=== PATIENT | male | born 1955 | race Caucasian/White ===

== ENCOUNTER 2022-05-10 10:31 | Inpatient (IN) | payer MEDICARE ==
--- NOTE | 2022-05-10 10:57 | ED Physician Documentation ---
PD HPI DYSPNEA - Stated complaint Stated Complaint: SOA,CHEST PAIN - Chief complaint Chief Complaint: Cardiac - History obtained from History obtained from: Patient - History of Present Illness Timing - onset: How many months ago (2) Timing - onset during: Light activity Timing - duration: Months (2) Timing - details: Gradual onset, Still present, Waxing and waning Improved by: Rest, Sitting up Worsened by: Exertion Associated symptoms: Palpitations, Bilateral edema. No: Fever, Cough, Hemoptysis, Wheezing, Chest pain / discomfort, Diaphoresis Similar symptoms before: Has not had sx before Recently seen: Emergency Dept - Additional information Additional information: 66-year-old Lazaro Mitchell has not had a primary care doctor for years and he has developed some swelling to his lower extremities and along with this he has had some exertional dyspnea. He has recently come into the emergency department and had some venous stasis ulcers which have become infected and he was placed on antibiotic. He has been wrapping his legs and the swelling has improved. The patient went into the clinic today to have his dressings changed and was found to have atrial fibrillation with rapid ventricular response and he has been sent to the emergency department for treatment. The patient notes to me that he has had this swelling in his lower extremities for about 2 months he has had some increased exertional dyspnea associated with the swelling in his legs and has had this happen to him about a year ago which he self treated and it resolved. He does not know of a prior history of atrial fibrillation. Review of Systems Constitutional: denies: Fever Ears: denies: Ear pain Nose: denies: Congestion Throat: denies: Sore throat Cardiac: reports: Palpitations, Pedal edema, Calf pain. denies: Chest pain / pressure Respiratory: reports: Dyspnea. denies: Cough, Wheezing GI: denies: Abdominal Pain, Nausea, Vomiting, Constipation, Diarrhea : denies: Dysuria, Frequency PD PAST MEDICAL HISTORY - Present Medications Home Medications: Ambulatory Orders Medication Instructions Recorded Confirmed Sulfamethox/Trimeth 800/160 1 tab PO BID 05/10/22 05/10/22 [Bactrim Ds] - Allergies Allergies/Adverse Reactions: Allergies Allergy/AdvReac Type Severity Reaction Status Date / Time Penicillins Allergy Hives Verified 05/10/22 10:50 PD ED PE NORMAL - Vitals Vital signs reviewed: Yes (tachy and hypertensive) - General General: Alert and oriented X 3, No acute distress, Well developed/nourished - HEENT HEENT: Atraumatic, PERRL, EOMI - Neck Neck: Supple, no meningeal sign, No bony TTP - Cardiac Cardiac: No murmur, Other (tachycardic irregularly irregular heart rate. ) - Respiratory Respiratory: Other (tachypneic at rest with reduced breath sounds in the right base. ) - Abdomen Abdomen: Soft, Non tender - Back Back: No CVA TTP, No spinal TTP - Derm Derm: Warm and dry, Other (post inflamatory hyperpigmentation to the LE bilat) - Extremities Extremities: No deformity, Other (There is trace edema bilaterally to the lower extremities and there is postinflammatory hyperpigmentation consistent with venous stasis disease present bilaterally he also has numerous ulcerations consistent with popped blistering that have become infected. There is erythema surrounding the ulcerat) - Neuro Neuro: Alert and oriented X 3, hemmer chainstitch 2-12 intact, No motor deficit, No sensory deficit, Normal speech Eye Opening: Spontaneous Motor: Obeys Commands Verbal: Oriented GCS Score: 15 - Psych Psych: Normal mood, Normal affect Results - Vitals Vitals: Vital Signs - 24 hr 05/10/22 05/10/22 05/10/22 10:45 11:10 11:30 Temperature 37.7 C Heart Rate 135 H 85 91 Respiratory 24 18 22 Rate Blood Pressure 160/90 H 147/85 H 111/89 H O2 Saturation 99 96 95 05/10/22 12:30 Temperature Heart Rate 95 Respiratory 20 Rate Blood Pressure 142/83 H O2 Saturation 100 Oxygen O2 Source Room air - EKG (time done) 1046 Rate: Rate (enter#) (144) Rhythm: Atrial fibrillation [place]: RAD Intervals: Prolonged QT (bordeline ) Ischemia: ST depression (minimal in lateral leads ) Compare to prior EKG: Old EKG unavailable Computer interpretation: Agree with computer - Labs Labs: Laboratory Tests 05/10/22 05/10/22 05/10/22 11:28 11:28 11:28 WBC 7.3 RBC 4.86 Hgb 14.4 Hct 44.2 MCV 90.9 MCH 29.6 MCHC 32.6 RDW 16.8 H Plt Count 189 MPV 10.5 Neut # (Auto) 5.3 Lymph # (Auto) 1.2 L [place] # (Auto) 0.7 Eos # (Auto) 0.1 Baso # (Auto) 0.1 Absolute Nucleated RBC 0.00 Nucleated RBC % 0.0 Sodium 134 L Potassium 4.2 Chloride 100 L Carbon Dioxide 26 Anion Gap 8.0 BUN 21 H Creatinine 0.9 Estimated GFR (MDRD) 84 L Glucose 92 Calcium 8.7 Total Bilirubin 1.0 AST 45 H ALT 29 Alkaline Phosphatase 126 H Troponin I High Sens 17.9 B-Natriuretic Peptide Total Protein 7.3 Albumin 2.5 L Globulin 4.8 H Albumin/Globulin Ratio 0.5 L Lipase 44 TSH Free T4 Free T3 pg/mL Urine Color Urine Clarity Urine pH Ur Specific [place] Urine Protein Urine Glucose (UA) Urine Ketones Urine Occult Blood Urine Nitrite Urine Bilirubin Urine Urobilinogen Ur Leukocyte Esterase Ur Microscopic Review Urine Culture Comments 05/10/22 05/10/22 05/10/22 11:28 11:28 11:28 WBC RBC Hgb Hct MCV MCH MCHC RDW Plt Count MPV Neut # (Auto) Lymph # (Auto) [place] # (Auto) Eos # (Auto) Baso # (Auto) Absolute Nucleated RBC Nucleated RBC % Sodium Potassium Chloride Carbon Dioxide Anion Gap BUN Creatinine Estimated GFR (MDRD) Glucose Calcium Total Bilirubin AST ALT Alkaline Phosphatase Troponin I High Sens B-Natriuretic Peptide 564 H Total Protein Albumin Globulin Albumin/Globulin Ratio Lipase TSH < 0.08 L Free T4 1.89 H Free T3 pg/mL 3.88 Urine Color Urine Clarity Urine pH Ur Specific [place] Urine Protein Urine Glucose (UA) Urine Ketones Urine Occult Blood Urine Nitrite Urine Bilirubin Urine Urobilinogen Ur Leukocyte Esterase Ur Microscopic Review Urine Culture Comments 05/10/22 12:02 WBC RBC Hgb Hct MCV MCH MCHC RDW Plt Count MPV Neut # (Auto) Lymph # (Auto) [place] # (Auto) Eos # (Auto) Baso # (Auto) Absolute Nucleated RBC Nucleated RBC % Sodium Potassium Chloride Carbon Dioxide Anion Gap BUN Creatinine Estimated GFR (MDRD) Glucose Calcium Total Bilirubin AST ALT Alkaline Phosphatase Troponin I High Sens B-Natriuretic Peptide Total Protein Albumin Globulin Albumin/Globulin Ratio Lipase TSH Free T4 Free T3 pg/mL Urine Color DARK YELLOW Urine Clarity CLEAR Urine pH 6.0 Ur Specific [place] >=1.030 H Urine Protein NEGATIVE Urine Glucose (UA) NEGATIVE Urine Ketones NEGATIVE Urine Occult Blood NEGATIVE Urine Nitrite NEGATIVE Urine Bilirubin NEGATIVE Urine Urobilinogen 1 (NORMAL) Ur Leukocyte Esterase NEGATIVE Ur Microscopic Review NOT INDICATED Urine Culture Comments NOT INDICATED - Rads (name of study) chest Radiology: Prelim report reviewed (Impression: Mild cardiomegaly with interstitial prominence and small pleural effusions. Please consider early CHF. There is elevation of the right hemidiaphragm.), EMP read indepedently, See rad report Procedures - IVC sono (time) 1050 Bedside IVC sono: IVC measures (cm) (1.87), IVC collapsed c insp (cm) (0.82), Euvolemia PD MEDICAL DECISION MAKING - ED course Complexity details: reviewed old records, reviewed results, re-evaluated patient, considered differential, d/w patient ED course: 66-year-old male who has seen us once here in the emergency department recently for swelling in his legs and infected ulcers has improvement in his ulcers and swelling and today he presents with atrial fibrillation and rapid ventricular response discovered on follow-up by his primary. The patient has evidence of likely longstanding atrial fibrillation that he has not tolerated well. There is evidence of congestive heart failure there is a pleural effusion on the right side. Patient does not appear to require diuresis today but he does appear tachycardic with a rate in the 130s to 140s and he is administered diltiazem. He requires a dose of 20 mg followed by a dose of 25 mg and his rate now is in the 70s. He remains in atrial fibrillation. He does not have a known history of prior atrial fibrillation. He arrives to us here today on as his only medication. I believe the patient will require more than 1 medication for stabilization of his atrial fibrillation with rapid ventricular response and I believe this would be best served for this patient in the hospital. Departure - Departure Disposition: ED Place in Observation Clinical Impression: Atrial fibrillation with RVR Venous stasis ulcers Qualifiers: Venous stasis ulcer site: calf Varicose vein presence: unspecified whether present Laterality: unspecified laterality Non-pressure ulcer stage: with fat layer exposed Qualified Code(s): I83.002 - Varicose veins of unspecified lower extremity with ulcer of calf CHF (congestive heart failure) Qualifiers: Heart failure type: unspecified Heart failure chronicity: chronic Qualified Code(s): I50.9 - Heart failure, unspecified Condition: Stable Discharge Date/Time: 05/10/22 14:20
[2022-05-10] MEDS ORDERED: diltiaZEM INJ 5 MG/ML VIAL IVP STA ×2 (10:58→12:38)
[2022-05-10 11:37] LABS: BASOPHILS # (AUTO) 0.1 10^3/uL (0.0-0.1); BASOPHILS % (AUTO) 0.7 %; EOSINOPHILS # (AUTO) 0.1 10^3/uL (0.0-0.7); HCT - HEMATOCRIT 44.2 % (42.0-52.0); HGB - HEMOGLOBIN 14.4 g/dL (14.0-18.0); LYMPHOCYTES # (AUTO) 1.2 10^3/uL (1.5-3.5); MEAN CORPUSCULAR HEMOGLOBIN 29.6 pg (27.0-31.0); MEAN CORPUSCULAR HGB CONC 32.6 g/dL (32.0-36.0); MEAN CORPUSCULAR VOLUME 90.9 fL (80.0-94.0); MEAN PLATELET VOLUME 10.5 fL (7.4-11.4); MONOCYTES # (AUTO) 0.7 10^3/uL (0.0-1.0); MONOCYTES % (AUTO) 9.5 %; NEUTROPHILS # (AUTO) 5.3 10^3/uL (1.5-6.6); NEUTROPHILS % (AUTO) 72.4 %; PLT - PLATELET COUNT 189 10^3/uL (130-450); RED BLOOD COUNT 4.86 10^6/uL (4.70-6.10); RED CELL DISTRIBUTION WIDTH 16.8 % (12.0-15.0); WHITE BLOOD COUNT 7.3 x10^3/uL (4.8-10.8)
[2022-05-10 11:49] LABS: ALBUMIN 2.5 g/dL (3.2-5.5); ALBUMIN/GLOBULIN RATIO 0.5 (1.0-2.2); CALCIUM 8.7 mg/dL (8.5-10.3); CREATININE 0.9 mg/dL (0.6-1.2); POTASSIUM 4.2 mmol/L (3.5-5.0); TOTAL PROTEIN 7.3 g/dL (6.7-8.2)
--- NOTE | 2022-05-10 12:00 | XRAY Report ---
PROCEDURE: Chest 1 View X-Ray INDICATIONS: dyspnea TECHNIQUE: One view of the chest was acquired. COMPARISON: None FINDINGS: Surgical changes and devices: None. Lungs and pleura: There is elevation of the right hemidiaphragm. Poorly defined interstitial prominen ce can be seen. There is mild blunting of the costophrenic angles. Mediastinum: Mediastinal contours appear normal. Heart size is mildly enlarged. Bones and chest wall: No suspicious bony lesions. Age-appropriate degenerative changes are seen. Overlying soft tissues appear unremarkable. IMPRESSION: Mild cardiomegaly with interstitial prominence and small pleural effusions. Please consider early CHF . There is elevation of the right hemidiaphragm. Reviewed by: Hari Baca MD on 05/10/2022 10:59 AM SASHA Approved by: Hari Baca MD on 05/10/2022 10:59 AM SASHA Station ID: [id number]
[2022-05-10 12:07] LABS: GLUCOSE, URINE (UA) NEGATIVE (NEGATIVE); KETONES,URINE (UA) NEGATIVE (NEGATIVE); LEUKOCYTE ESTERASE, URINE NEGATIVE (NEGATIVE); NITRITE,URINE NEGATIVE (NEGATIVE); OCCULT BLOOD,URINE NEGATIVE (NEGATIVE); PROTEIN,URINE NEGATIVE (NEGATIVE); UROBILINOGEN,URINE 1 (NORMAL) E.U./dL (NORMAL)
[2022-05-10 12:08] LABS: CLARITY,URINE CLEAR (CLEAR)
[2022-05-10 12:11] LABS: BILIRUBIN,URINE NEGATIVE (NEGATIVE); ICTOTEST,URINE NEGATIVE
[2022-05-10] MEDS ORDERED: ONDANSETRON ODT 4 MG TABLET TL PRN (13:19)
[2022-05-10] MEDS ORDERED: ONDANSETRON 4 MG/2 ML VIAL IVP PRN (13:19)
[2022-05-10] MEDS ORDERED: SODIUM CHLORIDE FLUSH 0.9% 10 ML SYRINGE IVP PRN (13:19)
[2022-05-10] MEDS ORDERED: ACETAMINOPHEN 325 MG TABLET PO PRN (13:19)
[2022-05-10] MEDS ORDERED: FUROSEMIDE 40 MG/4 ML VIAL IVP STA (13:22)
--- NOTE | 2022-05-10 13:24 | HISTORY & PHYSICAL EXAMINATION ---
Chief Complaint - Chief Complaint Chief Complaint: Heart racing History of Present Illness - Admitted From Admitted From:: Home - History Obtained From Records Reviewed: [facility] History obtained from: Patient, ER Physician, EMR - History of Present Illness HPI Comment/Other: This is a 66-year-old male with no significant past medical history who presents today from the walk-in clinic due to palpitations. He states he has felt his heart racing for the past few days and he went to walk-in clinic today to follow-up for his lower extremity wounds. There he was noted to have an elevated heart rate in the 130s and he was in atrial fibrillation so he was referred to the emergency department. The patient was seen 3 days ago in our emergency department for lower extremity wounds and was discharged on Bactrim. He states his wounds have been there for the last few months. He has had no fevers or chills. He has had occasional drainage from the wounds in both of his legs. He states his legs have become more edematous over the past week or so. He has now developed dyspnea over the past 2 to 3 days. He has had no cough or orthopnea. He is a little more dyspneic with activity. He has noticed some wheezing as well over the past 2 to 3 days. He is on an antihistamine and Tylenol at home. The only other medication is the Bactrim which was just prescribed 3 days ago. He denies any prior cardiac history including CHF, coronary artery disease, atrial fibrillation. In the emergency department, he was given diltiazem IV twice with improvement in his heart rate to the 80s. Chest x-ray suggest pulmonary edema and his BNP was elevated. Given the new onset atrial fibrillation along with CHF, medicine was consulted for admission. We discussed goals of care and he would like to be a full code. History - Past Medical History Cardiovascular: reports: Congestive heart failure, Atrial fibrillation - Family & Social History Living arrangement: At home Living Situation: With friend(s) Social History Notes: He lives at home with a friend. He smoked a few cigarettes a day for about 10 years but quit over 10 years ago. He drank alcohol briefly in the 90s. No recent alcohol use. Denies illicit drug use. Meds/Allgy - Home Medications Home Medications: Ambulatory Orders Medication Instructions Recorded Confirmed Sulfamethox/Trimeth 800/160 1 tab PO BID 05/10/22 05/10/22 [Bactrim Ds] - Allergies Allergies/Adverse Reactions: Allergies Allergy/AdvReac Type Severity Reaction Status Date / Time Penicillins Allergy Hives Verified 05/10/22 10:50 Review of Systems - Constitutional Constitutional: denies: Fever, Weakness - Ears, Nose & Throat Ears, Nose & Throat: denies: Postnasal drainage, Dentures - Cardiovascular Cariovascular: reports: Palpitations, Edema, Exertional dyspnea, Decr. exercise tolerance. denies: Chest pain, Lightheadedness - Respiratory Respiratory: reports: Wheezing, SOB at rest, SOB with exertion. denies: Cough, Orthopnea - Gastrointestinal Gastrointestinal: denies: Abdominal pain, Diarrhea, Nausea, Vomiting - Genitourinary Genitourinary: denies: Dysuria, Frequency, Urgency - Integumentary Integumentary: reports: Lesions, Pigment changes - Neurological Neurological: denies: General weakness - Hematologic/Lymphatic Hematologic/Lymphatic: denies: Anemia, Bleeding tendencies - All Other Systems All Other Systems: reports: Reviewed and negative Prior Level of Functionality: Independent with his ADLs. Exam - Vital Signs Reviewed Vital Signs: Yes Vital Signs: Vital Signs x48h Temp Pulse Resp BP Pulse Ox 05/10/22 12:30 95 20 142/83 H 100 05/10/22 11:30 91 22 111/89 H 95 05/10/22 11:10 85 18 147/85 H 96 05/10/22 10:45 37.7 C 135 H 24 160/90 H 99 - Physical Exam General Appearance: positive: No acute distress, Alert Eyes Bilateral: positive: Conjunctivae nml ENT: positive: Other (Poor dentition with multiple missing teeth.) Neck: positive: Nml inspection Respiratory: positive: No respiratory distress, Rales. negative: Wheezes Cardiovascular: positive: Irregularly irregular. negative: Tachycardia, Systolic murmur Abdomen: positive: Non-tender, No distention. negative: Tenderness Skin: positive: Warm, Dry, Other (Multiple ulcerations over the bilateral lower extremities with the largest being approximately 4 cm over the lateral aspect of the right lower extremity. There is sanguinous discharge.) Extremities: positive: Pedal edema (+2 edema in bilateral lower extremities.), Other (Chronic venous stasis changes over bilateral lower extremities.) Conclusion/Plan - Problem List (1) Atrial fibrillation with RVR Conclusion/Plan: He is found to have new onset atrial relation and now appears to be in mild heart failure as well. He is rate controlled after receiving diltiazem in the emergency department. We will start him on oral metoprolol for rate control. We will also start him on Eliquis for anticoagulation. Monitor on telemetry. Check TSH. Echocardiogram in the morning. (2) CHF (congestive heart failure) Conclusion/Plan: Suspect like he has underlying heart failure given his lower extremity edema, elevated BNP, pulmonary vascular congestion on chest x-ray. This may be due to tachyarrhythmia given he is in atrial fibrillation. He is not overtly symptomatic and is not hypoxic. We will give him a one-time dose of Lasix IV today and start him on oral diuretics in the morning. We will obtain echocardiogram in the morning. Low-sodium diet. Daily weights. Plan is to discharge home tomorrow on appropriate heart failure therapy. Qualifiers: Heart failure type: unspecified Heart failure chronicity: chronic Qualified Code(s): I50.9 - Heart failure, unspecified (3) Venous stasis ulcers Conclusion/Plan: He is on Bactrim which we will continue to complete 1 week of therapy as there w as concern of infection during his most recent ER visit. Qualifiers: Venous stasis ulcer site: calf Varicose vein presence: unspecified whether present Laterality: unspecified laterality Non-pressure ulcer stage: with fat layer exposed Qualified Code(s): I83.002 - Varicose veins of unspecified lower extremity with ulcer of calf; L97.202 - Non-pressure chronic ulcer of unspecified calf with fat layer exposed - Lab Results Lab results reviewed: Yes Fish Bones: 05/10/22 11:28 05/10/22 11:28 - Diagnostic Imaging Results Diagnostic Imaging Results: positive: Final report reviewed - EKG Results EKG Interpreted Independently: Yes EKG Findings: EKG revealed atrial fibrillation with RVR. No evidence of ischemia. Artifact is noted. Core Measures - Anticipated LOS I expect patient to be DC'd or transferred within 96 hours.: Yes - Issues Hospital Issues and Management Plan: 66-year-old male presents from walk-in clinic due to an elevated heart rate found to be in A. fib with RVR. Looks to be in mild congestive heart failure and we will place in observation for further management of the heart failure and A. fib. - DVT/VTE - Prophylaxis VTE/DVT Device ordered at admit?: No VTE/DVT Prophylaxis med ordered at admit?: No
[2022-05-10] MEDS ORDERED: METOPROLOL SUCCINATE 50 MG TABLET PO SCH ×2 (14:00→15:00)
[2022-05-10 14:47] LABS: B. PARAPERTUSSIS- RESP PCR PAN NOT DETECTED; B. PERTUSSIS- RESP PCR PANEL NOT DETECTED; C. PNEUMONIAE- RESP PCR PANEL NOT DETECTED; CORONAVIRUS 229E-RESP PCR NOT DETECTED; CORONAVIRUS HKU1-RESP PCR NOT DETECTED; CORONAVIRUS NL63-RESP PCR NOT DETECTED; CORONAVIRUS OC43-RESP PCR NOT DETECTED; HUMAN METAPNEUMOVIRUS NOT DETECTED; INFLUENZA A- RESP PCR PANEL NOT DETECTED; INFLUENZA B - RESP PCR PANEL NOT DETECTED; M. PNEUMONIAE- RESP PCR PANEL NOT DETECTED; PARAINFLUENZA VIRUS 1 NOT DETECTED; PARAINFLUENZA VIRUS 2 NOT DETECTED; PARAINFLUENZA VIRUS 3 NOT DETECTED; PARAINFLUENZA VIRUS 4 NOT DETECTED; RHINOVIRUS/ENTEROVIRUS NOT DETECTED; RSV- RESP PCR PANEL NOT DETECTED; SARS-CoV-2 -RESP PCR PANEL NOT DETECTED
[2022-05-10 15:23] LABS: FREE T3 3.88 pg/mL (2.5-3.9)
[2022-05-10 15:24] LABS: FREE T4 (FREE THYROXINE) 1.89 ng/dL (0.58-1.64)
--- NOTE | 2022-05-10 15:34 | PHARMACY PROGRESS NOTE ---
- Best Possible Medication History Admit Date and Time: 05/10/22 1315 Processed by: Pharmacy Medication History completed: Yes Secondary Source(s): Insurance records As the person ultimately responsible for medication therapy, providers are able to order a medication from an existing home medication list in [facility] via the "Reconcile Routine" prior to Confirmation of that medication by support architect. Such practice is discouraged except when the physician, in their clinical judgment, deems that a medical need exists for a medication without regard to previous use.
[2022-05-10] MEDS: SODIUM CHLORIDE FLUSH 0.9% 10 ML SYRINGE IVP SCH (16:22)
[2022-05-10] MEDS ORDERED: METOPROLOL 5 MG/5 ML VIAL IVP STA (18:04)
[2022-05-10] MEDS: BENZONATATE 100 MG CAPSULE PO PRN (19:18)
[2022-05-10] MEDS: METOPROLOL SUCCINATE 50 MG TABLET PO SCH (21:39)
[2022-05-10] MEDS: SULFAMETH/TRIMETH DS 800/160 MG TABLET PO SCH (21:39)
[2022-05-10] MEDS: APIXABAN 5 MG TABLET PO SCH (21:39)
[2022-05-10] MEDS: TAMSULOSIN 0.4 MG CAPSULE PO SCH (21:39)
[2022-05-11] MEDS: SODIUM CHLORIDE FLUSH 0.9% 10 ML SYRINGE IVP SCH ×3 (00:19→18:03)
[2022-05-11 06:00] LABS: BASOPHILS % (AUTO) 0.2 %; EOSINOPHILS % (AUTO) 0.2 %; HCT - HEMATOCRIT 41.6 % (42.0-52.0); HGB - HEMOGLOBIN 13.6 g/dL (14.0-18.0); LYMPHOCYTES # (AUTO) 0.6 10^3/uL (1.5-3.5); LYMPHOCYTES % (AUTO) 9.9 %; MEAN CORPUSCULAR HEMOGLOBIN 29.8 pg (27.0-31.0); MEAN CORPUSCULAR HGB CONC 32.7 g/dL (32.0-36.0); MEAN PLATELET VOLUME 10.5 fL (7.4-11.4); MONOCYTES # (AUTO) 0.4 10^3/uL (0.0-1.0); MONOCYTES % (AUTO) 6.7 %; NEUTROPHILS # (AUTO) 5.3 10^3/uL (1.5-6.6); NEUTROPHILS % (AUTO) 82.7 %; PLT - PLATELET COUNT 167 10^3/uL (130-450); RED BLOOD COUNT 4.57 10^6/uL (4.70-6.10); WHITE BLOOD COUNT 6.4 x10^3/uL (4.8-10.8)
[2022-05-11 06:12] LABS: CALCIUM 8.9 mg/dL (8.5-10.3); CREATININE 1.4 mg/dL (0.6-1.2); POTASSIUM 4.5 mmol/L (3.5-5.0)
--- NOTE | 2022-05-11 07:42 | PROVIDER PROGRESS NOTE ---
Subjective - Prog Note Date Prog Note Date: 05/11/22 - Subjective Subjective: He states he continues to feel short of breath. He felt this to most overnight when trying to sleep. Still has an occasional cough. Denies any palpitations or chest pain. Current Medications - Current Medications Current Medications: Active Medications Acetaminophen (Acetaminophen 325 Mg Tablet) 650 mg PO Q4HR PRN PRN Reason: Pain 1 to 4, or Fever Apixaban (Apixaban 5 Mg Tablet) 5 mg PO BID [facility] Last Admin: 05/10/22 21:39 Dose: 5 mg Benzonatate (Benzonatate 100 Mg Capsule) 100 mg PO TID PRN PRN Reason: Cough Last Admin: 05/10/22 19:18 Dose: 100 mg Furosemide (Furosemide 40 Mg/4 Ml Vial) 40 mg IVP DAILY [facility] Methimazole (Methimazole 5 Mg Tablet) 5 mg PO DAILYWM [facility] Metoprolol Succinate (Metoprolol Succinate 50 Mg Tablet) 50 mg PO BID [facility] Last Admin: 05/10/22 21:39 Dose: 50 mg Ondansetron HCl (Ondansetron Odt 4 Mg Tablet) 4 mg TL Q6HR PRN PRN Reason: Nausea / Vomiting Ondansetron HCl (Ondansetron 4 Mg/2 Ml Vial) 4 mg IVP Q6HR PRN PRN Reason: Nausea / Vomiting Polyethylene Glycol (Polyethylene Glycol 3350 17 Gm Packet) 17 gm PO DAILY [facility] Sodium Chloride (Sodium Chloride Flush 0.9% 10 Ml Syringe) 10 ml IVP PRN PRN PRN Reason: NEEDED PER PROVIDER ORDERS Sodium Chloride (Sodium Chloride Flush 0.9% 10 Ml Syringe) 10 ml IVP 0100,0900,1700 [facility] Last Admin: 05/11/22 00:19 Dose: 10 ml Tamsulosin HCl (Tamsulosin 0.4 Mg Capsule) 0.4 mg PO HS [facility] Last Admin: 05/10/22 21:39 Dose: 0.4 mg Trimethoprim/Sulfamethoxazole (Sulfameth/Trimeth Ds 800/160 Mg Tablet) 1 tab PO BID [facility] Last Admin: 05/10/22 21:39 Dose: 1 tab Sulfamethox/Trimeth 800/160 [Bactrim Ds] 1 tab PO BID 05/10/22 Objective - Vital Signs/Intake & Output Reviewed Vital Signs: Yes Vital Signs: Vital Signs x48h Temp Pulse Resp BP Pulse Ox 05/11/22 05:40 36.1 C L 77 27 H 116/61 96 05/11/22 00:20 36.2 C L 80 25 H 157/81 H 93 Intake & Output: Intake & Output 05/08/22 05/09/22 05/10/22 05/11/22 23:59 23:59 23:59 23:59 Intake Total 350 Output Total 1315 50 Balance -965 -50 - Objective General Appearance: positive: Other (He looks frail and older than stated age.) ENT: positive: Other (Nasal cannula in place.) Neck: positive: Nml inspection Respiratory: positive: Other (He is not in distress but is still tachypneic. Faint crackles present bilaterally. Breath sounds diminished) Cardiovascular: positive: Irregularly irregular. negative: Tachycardia, Systolic murmur Skin: positive: Warm, Dry, Other (Dressing in place over the bilateral lower extremities.) Extremities: positive: Pedal edema (+1 to +2 edema in the bilateral lower extremities.) - Lab Results Fish Bones: 05/11/22 05:50 05/11/22 05:50 Other Labs: Lab Results x24hrs 05/11/22 05/11/22 05/11/22 Range/Units 05:50 05:50 05:50 WBC 6.4 (4.8-10.8) x10^3/uL RBC 4.57 L (4.70-6.10) 10^6/uL Hgb 13.6 L (14.0-18.0) g/dL Hct 41.6 L (42.0-52.0) % MCV 91.0 (80.0-94.0) fL MCH 29.8 (27.0-31.0) pg MCHC 32.7 (32.0-36.0) g/dL RDW 17.0 H (12.0-15.0) % Plt Count 167 (130-450) 10^3/uL MPV 10.5 (7.4-11.4) fL Neut # (Auto) 5.3 (1.5-6.6) 10^3/uL Lymph # (Auto) 0.6 L (1.5-3.5) 10^3/uL Bourbon # (Auto) 0.4 (0.0-1.0) 10^3/uL Eos # (Auto) 0.0 (0.0-0.7) 10^3/uL Baso # (Auto) 0.0 (0.0-0.1) 10^3/uL Absolute Nucleated RBC 0.00 x10^3/uL Nucleated RBC % 0.0 /100WBC Sodium 133 L (135-145) mmol/L Potassium 4.5 (3.5-5.0) mmol/L Chloride 102 (101-111) mmol/L Carbon Dioxide 26 (21-32) mmol/L Anion Gap 5.0 L (6-13) BUN 32 H (6-20) mg/dL Creatinine 1.4 H (0.6-1.2) mg/dL Estimated GFR (MDRD) 50 L (>89) Glucose 136 H (70-100) mg/dL Calcium 8.9 (8.5-10.3) mg/dL Total Bilirubin (0.2-1.0) mg/dL AST (10-42) IU/L ALT (10-60) IU/L Alkaline Phosphatase (42-121) IU/L Troponin I High Sens (2.3-19.7) ng/L B-Natriuretic Peptide 1457 H (5-100) pg/mL Total Protein (6.7-8.2) g/dL Albumin (3.2-5.5) g/dL Globulin (2.1-4.2) g/dL Albumin/Globulin Ratio (1.0-2.2) Lipase (22-51) U/L TSH (0.34-5.60) uIU/mL Free T4 (0.58-1.64) ng/dL Free T3 pg/mL (2.5-3.9) pg/mL Urine Color Urine Clarity (CLEAR) Urine pH (5.0-7.5) PH Ur Specific Cameron (1.002-1.030) Urine Protein (NEGATIVE) mg/dL Urine Glucose (UA) (NEGATIVE) mg/dL Urine Ketones (NEGATIVE) mg/dL Urine Occult Blood (NEGATIVE) Urine Nitrite (NEGATIVE) Urine Bilirubin (NEGATIVE) Urine Urobilinogen (NORMAL) E.U./dL Ur Leukocyte Esterase (NEGATIVE) Ur Microscopic Review Urine Culture Comments Nasal Adenovirus (PCR) Nasal B. parapertussis DNA (PCR) Nasal Coronavir 229E PCR Nasal Coronavir HKU1 PCR Nasal Coronavir NL63 PCR Nasal Coronavir OC43 PCR Nasal Enterovir/Rhinovir PCR Nasal Influenza B PCR Nasal Influenza A PCR Nasal Parainfluen 1 PCR Nasal Parainfluen 2 PCR Nasal Parainfluen 3 PCR Nasal Parainfluen 4 PCR Nasal RSV (PCR) Nasal B.pertussis DNA PCR Nasal C.pneumoniae (PCR) Joaquin Human Metapneumo PCR Nasal M.pneumoniae (PCR) Nasal SARS-CoV-2 (PCR) 05/10/22 05/10/22 05/10/22 Range/Units 13:42 12:02 11:28 WBC (4.8-10.8) x10^3/uL RBC (4.70-6.10) 10^6/uL Hgb (14.0-18.0) g/dL Hct (42.0-52.0) % MCV (80.0-94.0) fL MCH (27.0-31.0) pg MCHC (32.0-36.0) g/dL RDW (12.0-15.0) % Plt Count (130-450) 10^3/uL MPV (7.4-11.4) fL Neut # (Auto) (1.5-6.6) 10^3/uL Lymph # (Auto) (1.5-3.5) 10^3/uL Bourbon # (Auto) (0.0-1.0) 10^3/uL Eos # (Auto) (0.0-0.7) 10^3/uL Baso # (Auto) (0.0-0.1) 10^3/uL Absolute Nucleated RBC x10^3/uL Nucleated RBC % /100WBC Sodium (135-145) mmol/L Potassium (3.5-5.0) mmol/L Chloride (101-111) mmol/L Carbon Dioxide (21-32) mmol/L Anion Gap (6-13) BUN (6-20) mg/dL Creatinine (0.6-1.2) mg/dL Estimated GFR (MDRD) (>89) Glucose (70-100) mg/dL Calcium (8.5-10.3) mg/dL Total Bilirubin (0.2-1.0) mg/dL AST (10-42) IU/L ALT (10-60) IU/L Alkaline Phosphatase (42-121) IU/L Troponin I High Sens (2.3-19.7) ng/L B-Natriuretic Peptide (5-100) pg/mL Total Protein (6.7-8.2) g/dL Albumin (3.2-5.5) g/dL Globulin (2.1-4.2) g/dL Albumin/Globulin Ratio (1.0-2.2) Lipase (22-51) U/L TSH (0.34-5.60) uIU/mL Free T4 1.89 H (0.58-1.64) ng/dL Free T3 pg/mL 3.88 (2.5-3.9) pg/mL Urine Color DARK YELLOW Urine Clarity CLEAR (CLEAR) Urine pH 6.0 (5.0-7.5) PH Ur Specific Cameron >=1.030 H (1.002-1.030) Urine Protein NEGATIVE (NEGATIVE) mg/dL Urine Glucose (UA) NEGATIVE (NEGATIVE) mg/dL Urine Ketones NEGATIVE (NEGATIVE) mg/dL Urine Occult Blood NEGATIVE (NEGATIVE) Urine Nitrite NEGATIVE (NEGATIVE) Urine Bilirubin NEGATIVE (NEGATIVE) Urine Urobilinogen 1 (NORMAL) (NORMAL) E.U./dL Ur Leukocyte Esterase NEGATIVE (NEGATIVE) Ur Microscopic Review NOT INDICATED Urine Culture Comments NOT INDICATED Nasal Adenovirus (PCR) NOT DETECTED Nasal B. parapertussis DNA (PCR) NOT DETECTED Nasal Coronavir 229E PCR NOT DETECTED Nasal Coronavir HKU1 PCR NOT DETECTED Nasal Coronavir NL63 PCR NOT DETECTED Nasal Coronavir OC43 PCR NOT DETECTED Nasal Enterovir/Rhinovir PCR NOT DETECTED Nasal Influenza B PCR NOT DETECTED Nasal Influenza A PCR NOT DETECTED Nasal Parainfluen 1 PCR NOT DETECTED Nasal Parainfluen 2 PCR NOT DETECTED Nasal Parainfluen 3 PCR NOT DETECTED Nasal Parainfluen 4 PCR NOT DETECTED Nasal RSV (PCR) NOT DETECTED Nasal B.pertussis DNA PCR NOT DETECTED Nasal C.pneumoniae (PCR) NOT DETECTED Joaquin Human Metapneumo PCR NOT DETECTED Nasal M.pneumoniae (PCR) NOT DETECTED Nasal SARS-CoV-2 (PCR) NOT DETECTED 05/10/22 05/10/22 05/10/22 Range/Units 11:28 11:28 11:28 WBC (4.8-10.8) x10^3/uL RBC (4.70-6.10) 10^6/uL Hgb (14.0-18.0) g/dL Hct (42.0-52.0) % MCV (80.0-94.0) fL MCH (27.0-31.0) pg MCHC (32.0-36.0) g/dL RDW (12.0-15.0) % Plt Count (130-450) 10^3/uL MPV (7.4-11.4) fL Neut # (Auto) (1.5-6.6) 10^3/uL Lymph # (Auto) (1.5-3.5) 10^3/uL Bourbon # (Auto) (0.0-1.0) 10^3/uL Eos # (Auto) (0.0-0.7) 10^3/uL Baso # (Auto) (0.0-0.1) 10^3/uL Absolute Nucleated RBC x10^3/uL Nucleated RBC % /100WBC Sodium (135-145) mmol/L Potassium (3.5-5.0) mmol/L Chloride (101-111) mmol/L Carbon Dioxide (21-32) mmol/L Anion Gap (6-13) BUN (6-20) mg/dL Creatinine (0.6-1.2) mg/dL Estimated GFR (MDRD) (>89) Glucose (70-100) mg/dL Calcium (8.5-10.3) mg/dL Total Bilirubin (0.2-1.0) mg/dL AST (10-42) IU/L ALT (10-60) IU/L Alkaline Phosphatase (42-121) IU/L Troponin I High Sens 17.9 (2.3-19.7) ng/L B-Natriuretic Peptide 564 H (5-100) pg/mL Total Protein (6.7-8.2) g/dL Albumin (3.2-5.5) g/dL Globulin (2.1-4.2) g/dL Albumin/Globulin Ratio (1.0-2.2) Lipase (22-51) U/L TSH < 0.08 L (0.34-5.60) uIU/mL Free T4 (0.58-1.64) ng/dL Free T3 pg/mL (2.5-3.9) pg/mL Urine Color Urine Clarity (CLEAR) Urine pH (5.0-7.5) PH Ur Specific Cameron (1.002-1.030) Urine Protein (NEGATIVE) mg/dL Urine Glucose (UA) (NEGATIVE) mg/dL Urine Ketones (NEGATIVE) mg/dL Urine Occult Blood (NEGATIVE) Urine Nitrite (NEGATIVE) Urine Bilirubin (NEGATIVE) Urine Urobilinogen (NORMAL) E.U./dL Ur Leukocyte Esterase (NEGATIVE) Ur Microscopic Review Urine Culture Comments Nasal Adenovirus (PCR) Nasal B. parapertussis DNA (PCR) Nasal Coronavir 229E PCR Nasal Coronavir HKU1 PCR Nasal Coronavir NL63 PCR Nasal Coronavir OC43 PCR Nasal Enterovir/Rhinovir PCR Nasal Influenza B PCR Nasal Influenza A PCR Nasal Parainfluen 1 PCR Nasal Parainfluen 2 PCR Nasal Parainfluen 3 PCR Nasal Parainfluen 4 PCR Nasal RSV (PCR) Nasal B.pertussis DNA PCR Nasal C.pneumoniae (PCR) Joaquin Human Metapneumo PCR Nasal M.pneumoniae (PCR) Nasal SARS-CoV-2 (PCR) 05/10/22 05/10/22 Range/Units 11:28 11:28 WBC 7.3 (4.8-10.8) x10^3/uL RBC 4.86 (4.70-6.10) 10^6/uL Hgb 14.4 (14.0-18.0) g/dL Hct 44.2 (42.0-52.0) % MCV 90.9 (80.0-94.0) fL MCH 29.6 (27.0-31.0) pg MCHC 32.6 (32.0-36.0) g/dL RDW 16.8 H (12.0-15.0) % Plt Count 189 (130-450) 10^3/uL MPV 10.5 (7.4-11.4) fL Neut # (Auto) 5.3 (1.5-6.6) 10^3/uL Lymph # (Auto) 1.2 L (1.5-3.5) 10^3/uL Bourbon # (Auto) 0.7 (0.0-1.0) 10^3/uL Eos # (Auto) 0.1 (0.0-0.7) 10^3/uL Baso # (Auto) 0.1 (0.0-0.1) 10^3/uL Absolute Nucleated RBC 0.00 x10^3/uL Nucleated RBC % 0.0 /100WBC Sodium 134 L (135-145) mmol/L Potassium 4.2 (3.5-5.0) mmol/L Chloride 100 L (101-111) mmol/L Carbon Dioxide 26 (21-32) mmol/L Anion Gap 8.0 (6-13) BUN 21 H (6-20) mg/dL Creatinine 0.9 (0.6-1.2) mg/dL Estimated GFR (MDRD) 84 L (>89) Glucose 92 (70-100) mg/dL Calcium 8.7 (8.5-10.3) mg/dL Total Bilirubin 1.0 (0.2-1.0) mg/dL AST 45 H (10-42) IU/L ALT 29 (10-60) IU/L Alkaline Phosphatase 126 H (42-121) IU/L Troponin I High Sens (2.3-19.7) ng/L B-Natriuretic Peptide (5-100) pg/mL Total Protein 7.3 (6.7-8.2) g/dL Albumin 2.5 L (3.2-5.5) g/dL Globulin 4.8 H (2.1-4.2) g/dL Albumin/Globulin Ratio 0.5 L (1.0-2.2) Lipase 44 (22-51) U/L TSH (0.34-5.60) uIU/mL Free T4 (0.58-1.64) ng/dL Free T3 pg/mL (2.5-3.9) pg/mL Urine Color Urine Clarity (CLEAR) Urine pH (5.0-7.5) PH Ur Specific Cameron (1.002-1.030) Urine Protein (NEGATIVE) mg/dL Urine Glucose (UA) (NEGATIVE) mg/dL Urine Ketones (NEGATIVE) mg/dL Urine Occult Blood (NEGATIVE) Urine Nitrite (NEGATIVE) Urine Bilirubin (NEGATIVE) Urine Urobilinogen (NORMAL) E.U./dL Ur Leukocyte Esterase (NEGATIVE) Ur Microscopic Review Urine Culture Comments Nasal Adenovirus (PCR) Nasal B. parapertussis DNA (PCR) Nasal Coronavir 229E PCR Nasal Coronavir HKU1 PCR Nasal Coronavir NL63 PCR Nasal Coronavir OC43 PCR Nasal Enterovir/Rhinovir PCR Nasal Influenza B PCR Nasal Influenza A PCR Nasal Parainfluen 1 PCR Nasal Parainfluen 2 PCR Nasal Parainfluen 3 PCR Nasal Parainfluen 4 PCR Nasal RSV (PCR) Nasal B.pertussis DNA PCR Nasal C.pneumoniae (PCR) Joaquin Human Metapneumo PCR Nasal M.pneumoniae (PCR) Nasal SARS-CoV-2 (PCR) Assessment/Plan - Problem List (1) CHF (congestive heart failure) Impression: This continues to be in exacerbation. He is now hypoxic and still symptomatic. His BNP has nearly tripled since admission. Suspect he likely has CHF due to t he atrial fibrillation fibrillation/hyperthyroidism. I suspect his ejection fraction will likely be reduced. We will continue him on Lasix 40 mg IV daily. We will continue on Toprol. No lisinopril for the time being given the acute kidney injury. Plan is for echocardiogram today. Continue with daily weights and BNP. Strict I's and O's. Low-sodium diet. Fluid restriction. Qualifiers: Heart failure type: unspecified Heart failure chronicity: acute Qualified Code(s): I50.9 - Heart failure, unspecified (2) Atrial fibrillation with RVR Impression: His heart rate is improved on the oral metoprolol. We will continue him on 50 mg twice daily. He is now on Eliquis as well for anticoagulation. His atrial fibrillation is likely due to hyperthyroidism. We are looking to obtain an echocardiogram today. Continue to monitor on telemetry. (3) Acute kidney injury Impression: His creatinine is increased today to 1.4 as well as BUN. This may be due to cardiorenal syndrome given his BNP is rising and he still appears to be in heart failure. The Bactrim may also be contributing to this as it does elevate the creatinine due to inhibition of creatinine secretion at the proximal convoluted tubules. At this time we will continue to diurese him with Lasix 40 mg IV daily given he appears to be in heart failure. We will not start lisinopril even if his ejection fraction is reduced until we see improvement in his renal function. Continue with daily BMP. (4) Hyperthyroidism Impression: Concern is for hyperthyroidism given his significantly decreased TSH and elevated T4. He is on metoprolol now given the atrial fibrillation. We will start methimazole 5 mg daily. He will need outpatient follow-up for repeat labs in 4 to 6 weeks. (5) Venous stasis ulcers Impression: We will continue the Bactrim for total of 1 week given there was concern for infection. He has 3 more days of treatment. Qualifiers: Venous stasis ulcer site: calf Varicose vein presence: unspecified whether present Laterality: unspecified laterality Non-pressure ulcer stage: with fat layer exposed Qualified Code(s): I83.002 - Varicose veins of unspecified lower extremity with ulcer of calf; L97.202 - Non-pressure chronic ulcer of unspecified calf with fat layer exposed (6) Severe protein-calorie malnutrition Impression: He does meet criteria for severe protein calorie malnutrition given significant muscle wasting and reduced functional capacity. We have consulted nutrition. He is on a fluid restriction due to the heart failure we will encourage p.o. intake.
[2022-05-11 08:11] LABS: CHOL/HDL RATIO 5.3 (<5.0); CHOLESTEROL 137 mg/dL; HDL CHOLESTEROL 26 mg/dL; LDL CHOLESTEROL,CALCULATED 98 mg/dL; LDL/HDL RATIO 3.8 (<3.6); TRIGLYCERIDES 63 mg/dL; VLDL CHOLESTEROL 13 mg/dL
[2022-05-11] MEDS: methIMAzole 5 MG TABLET PO SCH (08:43)
[2022-05-11] MEDS: FUROSEMIDE 40 MG/4 ML VIAL IVP SCH (08:43)
[2022-05-11] MEDS: SULFAMETH/TRIMETH DS 800/160 MG TABLET PO SCH ×2 (08:43→20:52)
[2022-05-11] MEDS: polyethylene glycoL 3350 17 GM PACKET PO SCH (08:43)
[2022-05-11] MEDS: METOPROLOL SUCCINATE 50 MG TABLET PO SCH ×2 (08:43→20:53)
[2022-05-11] MEDS: APIXABAN 5 MG TABLET PO SCH ×2 (08:43→20:53)
[2022-05-11] MEDS ORDERED: FUROSEMIDE 40 MG TABLET PO SCH (09:00)
[2022-05-11 10:10] LABS: ESTIMATED AVERAGE GLUCOSE 100 mg/dL (70-100); HEMOGLOBIN A1c% 5.1 % (4.27-6.07)
[2022-05-11] MEDS: MULTIVITAMIN W/MINERALS TABLET PO SCH (13:16)
[2022-05-11] MEDS: BENZONATATE 100 MG CAPSULE PO PRN (18:03)
[2022-05-11 19:00] LABS: CALCIUM 8.4 mg/dL (8.5-10.3); CREATININE 1.4 mg/dL (0.6-1.2); POTASSIUM 3.7 mmol/L (3.5-5.0)
[2022-05-11] MEDS: TAMSULOSIN 0.4 MG CAPSULE PO SCH (20:53)
[2022-05-12] MEDS: SODIUM CHLORIDE FLUSH 0.9% 10 ML SYRINGE IVP SCH ×3 (01:06→17:19)
[2022-05-12 05:08] LABS: BASOPHILS % (AUTO) 0.1 %; EOSINOPHILS % (AUTO) 0.1 %; HCT - HEMATOCRIT 40.3 % (42.0-52.0); HGB - HEMOGLOBIN 13.4 g/dL (14.0-18.0); LYMPHOCYTES # (AUTO) 1.3 10^3/uL (1.5-3.5); LYMPHOCYTES % (AUTO) 18.5 %; MEAN CORPUSCULAR HEMOGLOBIN 29.8 pg (27.0-31.0); MEAN CORPUSCULAR HGB CONC 33.3 g/dL (32.0-36.0); MEAN CORPUSCULAR VOLUME 89.8 fL (80.0-94.0); MEAN PLATELET VOLUME 10.8 fL (7.4-11.4); MONOCYTES # (AUTO) 0.7 10^3/uL (0.0-1.0); MONOCYTES % (AUTO) 9.5 %; NEUTROPHILS # (AUTO) 4.9 10^3/uL (1.5-6.6); NEUTROPHILS % (AUTO) 71.4 %; PLT - PLATELET COUNT 187 10^3/uL (130-450); RED BLOOD COUNT 4.49 10^6/uL (4.70-6.10); RED CELL DISTRIBUTION WIDTH 16.8 % (12.0-15.0); WHITE BLOOD COUNT 6.8 x10^3/uL (4.8-10.8)
[2022-05-12 05:23] LABS: CALCIUM 8.5 mg/dL (8.5-10.3); CREATININE 1.1 mg/dL (0.6-1.2); POTASSIUM 3.9 mmol/L (3.5-5.0)
[2022-05-12] MEDS: MULTIVITAMIN W/MINERALS TABLET PO SCH (07:59)
[2022-05-12] MEDS: methIMAzole 5 MG TABLET PO SCH (07:59)
[2022-05-12] MEDS: polyethylene glycoL 3350 17 GM PACKET PO SCH (08:01)
[2022-05-12] MEDS: METOPROLOL SUCCINATE 50 MG TABLET PO SCH ×2 (08:01→21:36)
[2022-05-12] MEDS: APIXABAN 5 MG TABLET PO SCH ×2 (08:01→21:36)
[2022-05-12] MEDS: FUROSEMIDE 40 MG/4 ML VIAL IVP SCH (08:01)
[2022-05-12] MEDS: SULFAMETH/TRIMETH DS 800/160 MG TABLET PO SCH ×2 (08:01→21:36)
--- NOTE | 2022-05-12 17:35 | PROVIDER PROGRESS NOTE ---
Assessment/Plan - Problem List (1) Acute diastolic heart failure Assessment/Plan: He was hypoxic, which has improved but is still symptomatic. His BNP nearly tripled since admission yesterday and today slightly improved. We suspected he developed CHF due to the atrial fibrillation fibrillation with RVR (which is from hyperthyroidism). His Echo was done today and it shows a normal LVEF, therefore he has diastolic heart failure due to RVR. He is only neg 800cc in fluid balance since admission. We will continue him on Lasix 40 mg IV daily. We will continue on Toprol. No lisinopril given the normal LVEF and the acute kidney injury. Continue following daily weights and BNP. Strict I's and O's. Low-sodium diet. Fluid restriction. (2) Atrial fibrillation with RVR Impression: His atrial fibrillation is likely due to hyperthyroidism. His heart rate has improved on the oral metoprolol succinate. We will continue him on new Toprol XL 50 mg twice daily. He is now on Eliquis as well for anticoagulation. Continue to monitor on telemetry. (3) Acute kidney injury Impression: His creatinine was increased and has improved with diuresis. Therefore, this was likely due to cardiorenal syndrome given his elevated BNP. The Bactrim may also be contributing to this as it does elevate the creatinine due to inhibition of creatinine secretion at the proximal convoluted tubules. At this time we will continue to diurese him with Lasix 40 mg IV daily given he appears to be in heart failure. No lisinopril indicated with normal LVEF. Continue with daily BMP labs. (4) Hyperthyroidism Impression: Labs show hyperthyroidism given his significantly decreased TSH and elevated T4. He is on metoprolol now given the atrial fibrillation. We have also started methimazole 5 mg daily. He will need outpatient follow-up for repeat labs in 4 to 6 weeks. (5) Venous stasis ulcers Impression: We will continue the Bactrim for total of 1 week given there was concern for infection. He has 3 more days of treatment. Also will order Xeroform dressings, ABD pad, and to wrap in gauze. Qualifiers: Venous stasis ulcer site: calf Varicose vein presence: unspecified whether present Laterality: unspecified laterality Non-pressure ulcer stage: with fat layer exposed Qualified Code(s): I83.002 - Varicose veins of unspecified lower extremity with ulcer of calf; L97.202 - Non-pressure chronic ulcer of unspecified calf with fat layer exposed (6) Severe protein-calorie malnutrition Impression: He has significant muscle wasting and reduced functional capacity. Weght loss may be partly due to hyperthroidism. We have consulted nutrition. He is on a fluid restriction due to the heart failure, but we will encourage p.o. calorie intake. - Current Meds Current Meds: Current Medications Generic Name Dose Route Start Last Admin Trade Name Freq PRN Reason Stop Dose Admin Apixaban 5 mg 05/10/22 21:00 05/12/22 08:01 Apixaban 5 Mg Tablet PO 5 mg BID JENNIFER Administration Benzonatate 100 mg 05/10/22 18:47 05/11/22 18:03 Benzonatate 100 Mg Capsule PO 100 mg TID PRN Administration Cough Furosemide 40 mg 05/11/22 09:00 05/12/22 08:01 Furosemide 40 Mg/4 Ml Vial IVP 40 mg DAILY JENNIFER Administration Methimazole 5 mg 05/11/22 08:00 05/12/22 07:59 Methimazole 5 Mg Tablet PO 5 mg DAILYWM JENNIFER Administration Metoprolol Succinate 50 mg 05/10/22 21:00 05/12/22 08:01 Metoprolol Succinate 50 Mg Tablet PO 50 mg BID JENNIFER Administration Multivitamins/Minerals 1 tab 05/11/22 13:00 05/12/22 07:59 Multivitamin W/Minerals Tablet PO 1 tab DAILYWM JENNIFER Administration Polyethylene Glycol 17 gm 05/11/22 09:00 05/12/22 08:01 Polyethylene Glycol 3350 17 Gm Packet PO 17 gm DAILY JENNIFER Administration Sodium Chloride 10 ml 05/10/22 17:00 05/12/22 17:19 Sodium Chloride Flush 0.9% 10 Ml Syringe IVP 10 ml 0100,0900,1700 JENNIFER Administration Tamsulosin HCl 0.4 mg 05/10/22 21:00 05/11/22 20:53 Tamsulosin 0.4 Mg Capsule PO 0.4 mg HS JENNIFER Administration Trimethoprim/Sulfamethoxazole 1 tab 05/10/22 21:00 05/12/22 08:01 Sulfameth/Trimeth Ds 800/160 Mg Tablet PO 05/13/22 20:59 1 tab BID JENNIFER Administration - Lab Result Fish Bone Diagrams: 05/12/22 04:56 05/12/22 04:56 Subjective - Subjective Patient Reports: Feeling Better (Less SOB with activity, still SDOB with lying supine), Resting Comfortably Objective Vital Signs: Vital Signs - 24 hr 05/11/22 05/11/22 05/12/22 20:09 23:29 04:56 Temperature 36.3 C L 36.3 C L 36.3 C L Heart Rate [ 82 86 89 Brachial] Respiratory 20 16 20 Rate Blood Pressure 111/58 L 115/56 L 114/44 L [Right Brachial artery] O2 Saturation 94 98 93 05/12/22 05/12/22 05/12/22 07:47 11:23 15:15 Temperature 36.3 C L 36.4 C L 36.4 C L Heart Rate [ 98 89 94 Brachial] Respiratory 18 18 19 Rate Blood Pressure 130/59 L 105/50 L 100/63 [Right Brachial artery] O2 Saturation 93 93 98 Oxygen O2 Source Room air I&O (Last 24 Hrs): Intake and Output Totals x24h 05/10/22 05/11/22 05/12/22 23:59 23:59 23:59 Intake Total 350 430 870 Output Total 8892 844 4992 Balance -965 110 -280 General: Alert HEENT: Mucous membr. moist/pink, Other (Cachectic, te,m[poral wasting) Neck: Supple Neuro: Alert, Non Focal Cardiovascular: No murmurs Respiratory: Other (SDiminished breath sounds at bases) Abdomen: Normal bowel sounds, Soft, No tenderness Extremities: Other (wrapped to knees) - Results Results: Laboratory Results WBC 6.8 x10^3/uL (4.8-10.8) 05/12/22 04:56 RBC 4.49 10^6/uL (4.70-6.10) L 05/12/22 04:56 Hgb 13.4 g/dL (14.0-18.0) L 05/12/22 04:56 Hct 40.3 % (42.0-52.0) L 05/12/22 04:56 MCV 89.8 fL (80.0-94.0) 05/12/22 04:56 MCH 29.8 pg (27.0-31.0) 05/12/22 04:56 MCHC 33.3 g/dL (32.0-36.0) 05/12/22 04:56 RDW 16.8 % (12.0-15.0) H 05/12/22 04:56 Plt Count 187 10^3/uL (130-450) 05/12/22 04:56 MPV 10.8 fL (7.4-11.4) 05/12/22 04:56 Neut # (Auto) 4.9 10^3/uL (1.5-6.6) 05/12/22 04:56 Lymph # (Auto) 1.3 10^3/uL (1.5-3.5) L 05/12/22 04:56 Ponce # (Auto) 0.7 10^3/uL (0.0-1.0) 05/12/22 04:56 Eos # (Auto) 0.0 10^3/uL (0.0-0.7) 05/12/22 04:56 Baso # (Auto) 0.0 10^3/uL (0.0-0.1) 05/12/22 04:56 Absolute Nucleated RBC 0.00 x10^3/uL 05/12/22 04:56 Nucleated RBC % 0.0 /100WBC 05/12/22 04:56 Sodium 138 mmol/L (135-145) 05/12/22 04:56 Potassium 3.9 mmol/L (3.5-5.0) 05/12/22 04:56 Chloride 101 mmol/L (101-111) 05/12/22 04:56 Carbon Dioxide 30 mmol/L (21-32) 05/12/22 04:56 Anion Gap 7.0 (6-13) 05/12/22 04:56 BUN 32 mg/dL (6-20) H 05/12/22 04:56 Creatinine 1.1 mg/dL (0.6-1.2) 05/12/22 04:56 Estimated GFR (MDRD) 67 (>89) L 05/12/22 04:56 Glucose 102 mg/dL (70-100) H 05/12/22 04:56 Estimat Average Glucose 100 mg/dL (70-100) 05/11/22 05:50 Hemoglobin A1c % 5.1 % (4.27-6.07) 05/11/22 05:50 Calcium 8.5 mg/dL (8.5-10.3) 05/12/22 04:56 Magnesium 2.0 mg/dL (1.7-2.8) 05/11/22 18:45 Total Bilirubin 1.0 mg/dL (0.2-1.0) 05/10/22 11:28 AST 45 IU/L (10-42) H 05/10/22 11:28 ALT 29 IU/L (10-60) 05/10/22 11:28 Alkaline Phosphatase 126 IU/L (42-121) H 05/10/22 11:28 Troponin I High Sens 17.9 ng/L (2.3-19.7) 05/10/22 11:28 B-Natriuretic Peptide 864 pg/mL (5-100) H 05/12/22 04:56 Total Protein 7.3 g/dL (6.7-8.2) 05/10/22 11:28 Albumin 2.5 g/dL (3.2-5.5) L 05/10/22 11:28 Globulin 4.8 g/dL (2.1-4.2) H 05/10/22 11:28 Albumin/Globulin Ratio 0.5 (1.0-2.2) L 05/10/22 11:28 Triglycerides 63 mg/dL (-149) 05/11/22 05:50 Cholesterol 137 mg/dL (-199) 05/11/22 05:50 LDL Cholesterol, Calc 98 mg/dL (-129) 05/11/22 05:50 VLDL Cholesterol 13 mg/dL 05/11/22 05:50 HDL Cholesterol 26 mg/dL (60-) L 05/11/22 05:50 LDL/HDL Ratio 3.8 (<3.6) 05/11/22 05:50 Cholesterol/HDL Ratio 5.3 (<5.0) 05/11/22 05:50 Lipase 44 U/L (22-51) 05/10/22 11:28 TSH < 0.08 uIU/mL (0.34-5.60) L 05/10/22 11:28 Free T4 1.89 ng/dL (0.58-1.64) H 05/10/22 11:28 Free T3 pg/mL 3.88 pg/mL (2.5-3.9) 05/10/22 11:28 Urine Color DARK YELLOW 05/10/22 12:02 Urine Clarity CLEAR (CLEAR) 05/10/22 12:02 Urine pH 6.0 PH (5.0-7.5) 05/10/22 12:02 Ur Specific [place] >=1.030 (1.002-1.030) H 05/10/22 12:02 Urine Protein NEGATIVE mg/dL (NEGATIVE) 05/10/22 12:02 Urine Glucose (UA) NEGATIVE mg/dL (NEGATIVE) 05/10/22 12:02 Urine Ketones NEGATIVE mg/dL (NEGATIVE) 05/10/22 12:02 Urine Occult Blood NEGATIVE (NEGATIVE) 05/10/22 12:02 Urine Nitrite NEGATIVE (NEGATIVE) 05/10/22 12:02 Urine Bilirubin NEGATIVE (NEGATIVE) 05/10/22 12:02 Urine Urobilinogen 1 (NORMAL) E.U./dL (NORMAL) 05/10/22 12:02 Ur Leukocyte Esterase NEGATIVE (NEGATIVE) 05/10/22 12:02 Ur Microscopic Review NOT INDICATED 05/10/22 12:02 Urine Culture Comments NOT INDICATED 05/10/22 12:02 Nasal Adenovirus (PCR) NOT DETECTED 05/10/22 13:42 Nasal B. parapertussis DNA (PCR) NOT DETECTED 05/10/22 13:42 Nasal Coronavir 229E PCR NOT DETECTED 05/10/22 13:42 Nasal Coronavir HKU1 PCR NOT DETECTED 05/10/22 13:42 Nasal Coronavir NL63 PCR NOT DETECTED 05/10/22 13:42 Nasal Coronavir OC43 PCR NOT DETECTED 05/10/22 13:42 Nasal Enterovir/Rhinovir PCR NOT DETECTED 05/10/22 13:42 Nasal Influenza B PCR NOT DETECTED 05/10/22 13:42 Nasal Influenza A PCR NOT DETECTED 05/10/22 13:42 Nasal Parainfluen 1 PCR NOT DETECTED 05/10/22 13:42 Nasal Parainfluen 2 PCR NOT DETECTED 05/10/22 13:42 Nasal Parainfluen 3 PCR NOT DETECTED 05/10/22 13:42 Nasal Parainfluen 4 PCR NOT DETECTED 05/10/22 13:42 Nasal RSV (PCR) NOT DETECTED 05/10/22 13:42 Nasal B.pertussis DNA PCR NOT DETECTED 05/10/22 13:42 Nasal C.pneumoniae (PCR) NOT DETECTED 05/10/22 13:42 Joaquin Human Metapneumo PCR NOT DETECTED 05/10/22 13:42 Nasal M.pneumoniae (PCR) NOT DETECTED 05/10/22 13:42 Nasal SARS-CoV-2 (PCR) NOT DETECTED 05/10/22 13:42
[2022-05-12] MEDS: TAMSULOSIN 0.4 MG CAPSULE PO SCH (21:36)
[2022-05-13] MEDS: SODIUM CHLORIDE FLUSH 0.9% 10 ML SYRINGE IVP SCH ×3 (00:03→17:36)
[2022-05-13] MEDS: METOPROLOL SUCCINATE 50 MG TABLET PO SCH ×3 (08:33→21:37)
[2022-05-13] MEDS: methIMAzole 5 MG TABLET PO SCH (08:34)
[2022-05-13] MEDS: APIXABAN 5 MG TABLET PO SCH ×2 (08:35→21:37)
[2022-05-13] MEDS: polyethylene glycoL 3350 17 GM PACKET PO SCH (08:35)
[2022-05-13] MEDS: SULFAMETH/TRIMETH DS 800/160 MG TABLET PO SCH (08:35)
[2022-05-13] MEDS: MULTIVITAMIN W/MINERALS TABLET PO SCH (08:35)
[2022-05-13] MEDS: FUROSEMIDE 40 MG/4 ML VIAL IVP SCH (08:35)
[2022-05-13 09:00] LABS: CALCIUM 8.1 mg/dL (8.5-10.3); CREATININE 0.9 mg/dL (0.6-1.2); POTASSIUM 3.7 mmol/L (3.5-5.0)
[2022-05-13 10:22] LABS: BASOPHILS % (AUTO) 0.5 %; EOSINOPHILS % (AUTO) 0.6 %; HCT - HEMATOCRIT 38.2 % (42.0-52.0); HGB - HEMOGLOBIN 12.7 g/dL (14.0-18.0); LYMPHOCYTES # (AUTO) 1.5 10^3/uL (1.5-3.5); LYMPHOCYTES % (AUTO) 23.3 %; MEAN CORPUSCULAR HEMOGLOBIN 29.7 pg (27.0-31.0); MEAN CORPUSCULAR HGB CONC 33.2 g/dL (32.0-36.0); MEAN CORPUSCULAR VOLUME 89.5 fL (80.0-94.0); MEAN PLATELET VOLUME 10.5 fL (7.4-11.4); MONOCYTES # (AUTO) 0.7 10^3/uL (0.0-1.0); MONOCYTES % (AUTO) 10.2 %; NEUTROPHILS # (AUTO) 4.2 10^3/uL (1.5-6.6); NEUTROPHILS % (AUTO) 65.1 %; PLT - PLATELET COUNT 173 10^3/uL (130-450); RED BLOOD COUNT 4.27 10^6/uL (4.70-6.10); WHITE BLOOD COUNT 6.4 x10^3/uL (4.8-10.8)
--- NOTE | 2022-05-13 14:47 | PROVIDER PROGRESS NOTE ---
Assessment/Plan - Problem List (1) Acute diastolic heart failure Assessment/Plan: He was hypoxic, which has improved but is still symptomatic. His BNP nearly tripled after admission then has improved on iv bid Lasix. We suspected he developed CHF due to the atrial fibrillation fibrillation with RVR (which is from hyperthyroidism). His Echo was done today and it shows a normal LVEF, therefore he has diastolic heart failure due to RVR. He is neg in fluid balance since admission. We will stop the iv Lasix after the a.m. dose. He will likely need po Lasix daily. We will continue on Toprol. No lisinopril was started, given the normal LVEF and the acute kidney injury. Continue following daily weights and BNP. Strict I's and O's. Low-sodium diet. Will stop the fluid restriction to assess what volume he would drink. (2) Atrial fibrillation with RVR Impression: His atrial fibrillation is likely due to hyperthyroidism. His heart rate has improved on the oral metoprolol succinate. We will continue him on new Toprol XL 50 mg twice daily. He is now on new Eliquis as well for anticoagulation. Continue to monitor on telemetry. Will order PT and OT eval today, to assess rate control with activity, and to assess his strength and mobility before discharge. (3) Cardiorenal syndrome Impression: His creatinine was elevated and has improved with diuresis. Therefore, this was likely due to cardiorenal syndrome given his elevated BNP. The Bactrim may also be contributing to this as it does elevate the creatinine due to inhibition of creatinine secretion at the proximal convoluted tubules. We will continue to diurese him with Lasix iv>> po No lisinopril indicated with his normal LVEF. Continue checking daily BMP labs. (4) Hyperthyroidism Impression: Labs show hyperthyroidism given his significantly decreased TSH and elevated T4. He is on metoprolol now We have also started methimazole 5 mg daily. He will need outpatient follow-up for repeat labs in 4 to 6 weeks. He has no PCP, SW and and [facility] RN were informed that he needs a PCP to follow his various problems after [facility] (5) Venous stasis ulcers Impression: We will continue the Bactrim for total of 1 week given there was concern for infection. He has 2 more days of treatment. Also will order Xeroform dressings, ABD pad, and to wrap in gauze. Qualifiers: Venous stasis ulcer site: calf Varicose vein presence: unspecified whether present Laterality: unspecified laterality Non-pressure ulcer stage: with fat layer exposed Qualified Code(s): I83.002 - Varicose veins of unspecified lower extremity with ulcer of calf; L97.202 - Non-pressure chronic ulcer of unspecified calf with fat layer exposed (6) Severe protein-calorie malnutrition Impression: He has significant muscle wasting and reduced functional capacity. Weight loss also may be partly due to hyperthroidism. We have consulted nutrition. He was on a fluid restriction due to the heart failure, but we will encourage p.o. calorie intake. - Current Meds Current Meds: Current Medications Generic Name Dose Route Start Last Admin Trade Name Freq PRN Reason Stop Dose Admin Apixaban 5 mg 05/10/22 21:00 05/13/22 08:35 Apixaban 5 Mg Tablet PO 5 mg BID JENNIFER Administration Benzonatate 100 mg 05/10/22 18:47 05/11/22 18:03 Benzonatate 100 Mg Capsule PO 100 mg TID PRN Administration Cough Methimazole 5 mg 05/11/22 08:00 05/13/22 08:34 Methimazole 5 Mg Tablet PO 5 mg DAILYWM JENNIFER Administration Metoprolol Succinate 50 mg 05/10/22 21:00 05/13/22 13:48 Metoprolol Succinate 50 Mg Tablet PO 50 mg BID JENNIFER Administration Multivitamins/Minerals 1 tab 05/11/22 13:00 05/13/22 08:35 Multivitamin W/Minerals Tablet PO 1 tab DAILYWM JENNIFER Administration Polyethylene Glycol 17 gm 05/11/22 09:00 05/13/22 08:35 Polyethylene Glycol 3350 17 Gm Packet PO Not Given DAILY JENNIFER Sodium Chloride 10 ml 05/10/22 17:00 05/13/22 08:34 Sodium Chloride Flush 0.9% 10 Ml Syringe IVP 10 ml 0100,0900,1700 JENNIFER Administration Tamsulosin HCl 0.4 mg 05/10/22 21:00 05/12/22 21:36 Tamsulosin 0.4 Mg Capsule PO 0.4 mg HS JENNIFER Administration Trimethoprim/Sulfamethoxazole 1 tab 05/10/22 21:00 05/13/22 08:35 Sulfameth/Trimeth Ds 800/160 Mg Tablet PO 05/13/22 20:59 1 tab BID JENNIFER Administration - Lab Result Fish Bone Diagrams: 05/13/22 04:38 05/13/22 04:38 - Additional Planning My Orders: My Active Orders 05/12/22 17:35 Miscellaenous Nursing Order [RC] QSHIFT 05/13/22 Evaluate and Treat OT [OT] Routine Evaluate and Treat PT [PT] Routine Subjective - Subjective Patient Reports: Feeling Better, Resting Comfortably Objective Vital Signs: Vital Signs - 24 hr 05/12/22 05/12/22 05/13/22 15:15 20:15 00:03 Temperature 36.4 C L 36.4 C L 36.3 C L Heart Rate [ 94 93 89 Brachial] Heart Rate [ Supine] Respiratory 19 15 18 Rate Blood Pressure 100/63 106/56 L 106/58 L [Right Brachial artery] Blood Pressure [Sitting] Blood Pressure [Standing] Blood Pressure [Supine] O2 Saturation 98 95 92 05/13/22 05/13/22 05/13/22 04:44 09:10 10:30 Temperature 36.5 C 36.5 C Heart Rate [ 76 64 Brachial] Heart Rate [ 93 Supine] Respiratory 20 20 Rate Blood Pressure 108/60 136/83 H [Right Brachial artery] Blood Pressure 143/74 H [Sitting] Blood Pressure 137/64 H [Standing] Blood Pressure 148/72 H [Supine] O2 Saturation 93 94 05/13/22 05/13/22 05/13/22 11:09 13:48 13:52 Temperature 36.4 C L Heart Rate [ 97 89 Brachial] Heart Rate [ 93 Supine] Respiratory 18 Rate Blood Pressure 121/59 L 111/54 L [Right Brachial artery] Blood Pressure 143/74 H [Sitting] Blood Pressure 137/64 H [Standing] Blood Pressure 148/72 H [Supine] O2 Saturation 95 Oxygen O2 Source Room air I&O (Last 24 Hrs): Intake and Output Totals x24h 05/11/22 05/12/22 05/13/22 23:59 23:59 23:59 Intake Total 430 1278 480 Output Total 320 1450 1025 Balance 110 172 -545 General: Alert HEENT: Mucous membr. moist/pink Neck: Supple, No JVD Neuro: Alert, Non Focal Respiratory: No respiratory distress Abdomen: Soft Extremities: No edema, Other (Wrapped below knees) - Results Results: Laboratory Results WBC 6.4 x10^3/uL (4.8-10.8) 05/13/22 04:38 RBC 4.27 10^6/uL (4.70-6.10) L 05/13/22 04:38 Hgb 12.7 g/dL (14.0-18.0) L 05/13/22 04:38 Hct 38.2 % (42.0-52.0) L 05/13/22 04:38 MCV 89.5 fL (80.0-94.0) 05/13/22 04:38 MCH 29.7 pg (27.0-31.0) 05/13/22 04:38 MCHC 33.2 g/dL (32.0-36.0) 05/13/22 04:38 RDW 17.0 % (12.0-15.0) H 05/13/22 04:38 Plt Count 173 10^3/uL (130-450) 05/13/22 04:38 MPV 10.5 fL (7.4-11.4) 05/13/22 04:38 Neut # (Auto) 4.2 10^3/uL (1.5-6.6) 05/13/22 04:38 Lymph # (Auto) 1.5 10^3/uL (1.5-3.5) 05/13/22 04:38 [place] # (Auto) 0.7 10^3/uL (0.0-1.0) 05/13/22 04:38 Eos # (Auto) 0.0 10^3/uL (0.0-0.7) 05/13/22 04:38 Baso # (Auto) 0.0 10^3/uL (0.0-0.1) 05/13/22 04:38 Absolute Nucleated RBC 0.00 x10^3/uL 05/13/22 04:38 Nucleated RBC % 0.0 /100WBC 05/13/22 04:38 Sodium 137 mmol/L (135-145) 05/13/22 04:38 Potassium 3.7 mmol/L (3.5-5.0) 05/13/22 04:38 Chloride 100 mmol/L (101-111) L 05/13/22 04:38 Carbon Dioxide 30 mmol/L (21-32) 05/13/22 04:38 Anion Gap 7.0 (6-13) 05/13/22 04:38 BUN 28 mg/dL (6-20) H 05/13/22 04:38 Creatinine 0.9 mg/dL (0.6-1.2) 05/13/22 04:38 Estimated GFR (MDRD) 84 (>89) L 05/13/22 04:38 Glucose 96 mg/dL (70-100) 05/13/22 04:38 Estimat Average Glucose 100 mg/dL (70-100) 05/11/22 05:50 Hemoglobin A1c % 5.1 % (4.27-6.07) 05/11/22 05:50 Calcium 8.1 mg/dL (8.5-10.3) L 05/13/22 04:38 Magnesium 2.0 mg/dL (1.7-2.8) 05/11/22 18:45 Total Bilirubin 1.0 mg/dL (0.2-1.0) 05/10/22 11:28 AST 45 IU/L (10-42) H 05/10/22 11:28 ALT 29 IU/L (10-60) 05/10/22 11:28 Alkaline Phosphatase 126 IU/L (42-121) H 05/10/22 11:28 Troponin I High Sens 17.9 ng/L (2.3-19.7) 05/10/22 11:28 B-Natriuretic Peptide 709 pg/mL (5-100) H 05/13/22 04:38 Total Protein 7.3 g/dL (6.7-8.2) 05/10/22 11:28 Albumin 2.5 g/dL (3.2-5.5) L 05/10/22 11:28 Globulin 4.8 g/dL (2.1-4.2) H 05/10/22 11:28 Albumin/Globulin Ratio 0.5 (1.0-2.2) L 05/10/22 11:28 Triglycerides 63 mg/dL (-149) 05/11/22 05:50 Cholesterol 137 mg/dL (-199) 05/11/22 05:50 LDL Cholesterol, Calc 98 mg/dL (-129) 05/11/22 05:50 VLDL Cholesterol 13 mg/dL 05/11/22 05:50 HDL Cholesterol 26 mg/dL (60-) L 05/11/22 05:50 LDL/HDL Ratio 3.8 (<3.6) 05/11/22 05:50 Cholesterol/HDL Ratio 5.3 (<5.0) 05/11/22 05:50 Lipase 44 U/L (22-51) 05/10/22 11:28 TSH < 0.08 uIU/mL (0.34-5.60) L 05/10/22 11:28 Free T4 1.89 ng/dL (0.58-1.64) H 05/10/22 11:28 Free T3 pg/mL 3.88 pg/mL (2.5-3.9) 05/10/22 11:28 Urine Color DARK YELLOW 05/10/22 12:02 Urine Clarity CLEAR (CLEAR) 05/10/22 12:02 Urine pH 6.0 PH (5.0-7.5) 05/10/22 12:02 Ur Specific [place] >=1.030 (1.002-1.030) H 05/10/22 12:02 Urine Protein NEGATIVE mg/dL (NEGATIVE) 05/10/22 12:02 Urine Glucose (UA) NEGATIVE mg/dL (NEGATIVE) 05/10/22 12:02 Urine Ketones NEGATIVE mg/dL (NEGATIVE) 05/10/22 12:02 Urine Occult Blood NEGATIVE (NEGATIVE) 05/10/22 12:02 Urine Nitrite NEGATIVE (NEGATIVE) 05/10/22 12:02 Urine Bilirubin NEGATIVE (NEGATIVE) 05/10/22 12:02 Urine Urobilinogen 1 (NORMAL) E.U./dL (NORMAL) 05/10/22 12:02 Ur Leukocyte Esterase NEGATIVE (NEGATIVE) 05/10/22 12:02 Ur Microscopic Review NOT INDICATED 05/10/22 12:02 Urine Culture Comments NOT INDICATED 05/10/22 12:02 Nasal Adenovirus (PCR) NOT DETECTED 05/10/22 13:42 Nasal B. parapertussis DNA (PCR) NOT DETECTED 05/10/22 13:42 Nasal Coronavir 229E PCR NOT DETECTED 05/10/22 13:42 Nasal Coronavir HKU1 PCR NOT DETECTED 05/10/22 13:42 Nasal Coronavir NL63 PCR NOT DETECTED 05/10/22 13:42 Nasal Coronavir OC43 PCR NOT DETECTED 05/10/22 13:42 Nasal Enterovir/Rhinovir PCR NOT DETECTED 05/10/22 13:42 Nasal Influenza B PCR NOT DETECTED 05/10/22 13:42 Nasal Influenza A PCR NOT DETECTED 05/10/22 13:42 Nasal Parainfluen 1 PCR NOT DETECTED 05/10/22 13:42 Nasal Parainfluen 2 PCR NOT DETECTED 05/10/22 13:42 Nasal Parainfluen 3 PCR NOT DETECTED 05/10/22 13:42 Nasal Parainfluen 4 PCR NOT DETECTED 05/10/22 13:42 Nasal RSV (PCR) NOT DETECTED 05/10/22 13:42 Nasal B.pertussis DNA PCR NOT DETECTED 05/10/22 13:42 Nasal C.pneumoniae (PCR) NOT DETECTED 05/10/22 13:42 Joaquin Human Metapneumo PCR NOT DETECTED 05/10/22 13:42 Nasal M.pneumoniae (PCR) NOT DETECTED 05/10/22 13:42 Nasal SARS-CoV-2 (PCR) NOT DETECTED 05/10/22 13:42
[2022-05-13] MEDS: TAMSULOSIN 0.4 MG CAPSULE PO SCH (21:37)
[2022-05-14] MEDS: SODIUM CHLORIDE FLUSH 0.9% 10 ML SYRINGE IVP SCH ×2 (05:28→09:13)
[2022-05-14 05:32] LABS: BASOPHILS % (AUTO) 0.5 %; EOSINOPHILS # (AUTO) 0.1 10^3/uL (0.0-0.7); EOSINOPHILS % (AUTO) 1.1 %; HCT - HEMATOCRIT 38.9 % (42.0-52.0); HGB - HEMOGLOBIN 13.1 g/dL (14.0-18.0); LYMPHOCYTES # (AUTO) 1.3 10^3/uL (1.5-3.5); LYMPHOCYTES % (AUTO) 20.2 %; MEAN CORPUSCULAR HEMOGLOBIN 29.8 pg (27.0-31.0); MEAN CORPUSCULAR HGB CONC 33.7 g/dL (32.0-36.0); MEAN CORPUSCULAR VOLUME 88.4 fL (80.0-94.0); MEAN PLATELET VOLUME 10.6 fL (7.4-11.4); MONOCYTES # (AUTO) 0.6 10^3/uL (0.0-1.0); MONOCYTES % (AUTO) 9.5 %; NEUTROPHILS # (AUTO) 4.4 10^3/uL (1.5-6.6); NEUTROPHILS % (AUTO) 68.5 %; PLT - PLATELET COUNT 172 10^3/uL (130-450); RED CELL DISTRIBUTION WIDTH 16.8 % (12.0-15.0); WHITE BLOOD COUNT 6.4 x10^3/uL (4.8-10.8)
[2022-05-14 05:55] LABS: CALCIUM 8.1 mg/dL (8.5-10.3); CREATININE 0.9 mg/dL (0.6-1.2); MAGNESIUM 1.8 mg/dL (1.7-2.8); POTASSIUM 3.9 mmol/L (3.5-5.0)
--- NOTE | 2022-05-14 08:13 | Discharge Plan ---
Discharge Plan Problem Reviewed?: Yes Disposition: Home, Self Care Condition: Stable Prescriptions: Apixaban [Eliquis] 5 mg PO BID #60 tablet Tamsulosin [Flomax] 0.4 mg PO HS #30 cap Furosemide [Lasix] 20 mg PO DAILY #30 tablet methIMAzole [Tapazole] 5 mg PO DAILYWM #30 tablet Multivitamin W/Minerals [Theragran M] 1 tab PO DAILYWM #30 tablet Metoprolol Succinate [Toprol Xl] 50 mg PO BID #60 tablet Diet: Low Sodium Activity Restrictions: Activity as Tolerated Shower Restrictions: No Assistance Devices: Cane Instruction Topics: Heart Failure Meds Control Health Concerns: You were admitted to the hospital to treat shortness of breath, and we found that you had fluid overload in your lungs. This was caused by congestive heart failure. Your congestive heart failure was caused by a very fast heart rate. The very fast heart rate we found is called Atrial fibrillation. You are going home with prescriptions for new medications. Please follow the prescribed medication list. You will need referral to a Behavioral Instructor for outpatient follow-up. Please see your doctor at the [facility] [place] for a hospital follow-up visit, and to get a referral to a Behavioral Instructor. Your new prescriptions have been electronically sent to your [facility] pharmacy in [place]. There is only a 1 month supply ordered, that is why you need to see your PCP or Behavioral Instructor in the next 1 to 3 weeks. Please LIMIT YOUR SALT INTAKE because salt will make you retain more water and the fluid may go to your lungs and make you short of breath again. Please keep the open wounds on your legs clean and let them heal. Show them to your doctor at the clinic visit also. Plan of Treatment: As above. Care Goals: Improvement in symptoms and stabilization are the goals. Assessment: The patient understands and is agreeable with the plan. These instructions are provided at discharge as a reminder. Additional Instructions or Follow Up instructions: If you have new or worsening symptoms, call your Primary Care Provider for advice or come to the Emergency Department. No Smoking: If you smoke, Please STOP! Call for help.
[2022-05-14] MEDS: polyethylene glycoL 3350 17 GM PACKET PO SCH (08:14)
[2022-05-14] MEDS: METOPROLOL SUCCINATE 50 MG TABLET PO SCH ×2 (08:30→11:01)
[2022-05-14] MEDS: MULTIVITAMIN W/MINERALS TABLET PO SCH (09:13)
[2022-05-14] MEDS: APIXABAN 5 MG TABLET PO SCH (09:13)
[2022-05-14] MEDS: methIMAzole 5 MG TABLET PO SCH (09:13)
[2022-05-14] MEDS ORDERED: FUROSEMIDE 40 MG TABLET PO ONE (09:15)
--- NOTE | 2022-05-14 09:22 | DISCHARGE SUMMARY ---
Discharge Summary Admit Date: 05/10/22 Discharge Date: 05/14/22 Discharging Provider: Dr Carolyn Power Primary Care Provider: [facility] Code Status: Attempt Resuscitation Condition at Discharge: Fair Discharge Disposition: 01 Home, Self Care - HPI History of Present Illness: From the admission H&P of Dr Terrance Oliva: This is a 66-year-old male with no significant past medical history who presents today from the walk-in clinic due to palpitations. He states he has felt his heart racing for the past few days and he went to walk-in clinic today to follow-up for his lower extremity wounds. There he was noted to have an elevated heart rate in the 130s and he was in atrial fibrillation so he was referred to the emergency department. The patient was seen 3 days ago in our emergency department for lower extremity wounds and was discharged on Bactrim. He states his wounds have been there for the last few months. He has had no fevers or chills. He has had occasional drainage from the wounds in both of his legs. He states his legs have become more edematous over the past week or so. He has now developed dyspnea over the past 2 to 3 days. He has had no cough or orthopnea. He is a little more dyspneic with activity. He has noticed some wheezing as well over the past 2 to 3 days. He is on an antihistamine and Tylenol at home. The only other medication is the Bactrim which was just prescribed 3 days ago. He denies any prior cardiac history including CHF, coronary artery disease, atrial fibrillation. In the emergency department, he was given diltiazem IV twice with improvement in his heart rate to the 80s. Chest x-ray suggest pulmonary edema and his BNP was elevated. Given the new onset atrial fibrillation along with new CHF, the Hospitalist Team was consulted for admission. We discussed goals of care and he would like to be a Full Code. - HOSPITAL COURSE Hospital Course: (1) Acute diastolic heart failure His BNP nearly tripled after admission then BNP improved on iv bid Lasix. He was hypoxic, needed supplemental oxygen until he was diuresed. We suspected he developed CHF due to the RVR in atrial fibrillation. He had an Echocardiogram that showed normal LV systolic function with EF of 55-60% but diastolic dysfunction was noted. He was tested for needing oxygen at home and he did not. He was sent home on new Toprol and Lasix. (2) Atrial fibrillation with RVR He was treated with Metoprolol and the heart rate became controlled. He was put on new Eliquis. He had an Echocardiogram that showed normal LV systolic function with EF of 55-60% but diastolic dysfunction noted. Troponins ruled him out for an [place]. His atrial fibrillation is likely due to newly diagnosed hyperthyroidism (see #4). (3) Cardiorenal syndrome His creatinine was elevated and improved with diuresis. Therefore, this was likely cardiorenal syndrome. (4) Hyperthyroidism Labs showed hyperthyroidism, with a significantly decreased TSH and elevated T4. He was started on Metoprolol and Methimazole 5 mg daily and discharged on these. He will need outpatient follow-up for repeat labs in 4 to 6 weeks. (5) Venous stasis ulcers We continued the Bactrim while here and he also had management with Xeroform dressings, ABD pad, and wrap in gauze. (6) Severe protein-calorie malnutrition He has significant muscle wasting and reduced functional capacity. His weight loss also may be partly from the hyperthroidism. He was discharged to take a Multivitamin daily. - ALLERGIES Allergies/Adverse Reactions: Allergies Allergy/AdvReac Type Severity Reaction Status Date / Time Penicillins Allergy Hives Verified 05/10/22 10:50 - MEDICATIONS Home Medications: Ambulatory Orders Medication Instructions Recorded Confirmed Sulfamethox/Trimeth 800/160 1 tab PO BID 05/10/22 05/10/22 [Bactrim Ds] Apixaban [Eliquis] 5 mg PO BID #60 tablet 05/14/22 Furosemide [Lasix] 20 mg PO DAILY #30 tablet 05/14/22 Metoprolol Succinate [Toprol Xl] 50 mg PO BID #60 tablet 05/14/22 Multivitamin W/Minerals [Theragran 1 tab PO DAILYWM #30 tablet 05/14/22 M] Tamsulosin [Flomax] 0.4 mg PO HS #30 cap 05/14/22 methIMAzole [Tapazole] 5 mg PO DAILYWM #30 tablet 05/14/22 - PHYSICAL EXAM AT DISCHARGE General Appearance: positive: No acute distress, Alert, Other (Cachectic) Eyes Bilateral: positive: Normal inspection ENT: positive: No signs of dehydration, Other (Poor dentition, many missing teeth.) Neck: positive: Nml inspection, No JVD Respiratory: positive: Rales, Other (Tachypneic after walking) Cardiovascular: positive: No murmur, Irregularly irregular Abdomen: positive: Non-tender, Nml bowel sounds, No distention Skin: positive: Warm, Dry Extremities: positive: Other (Dark venous stasis changes of both shins with several superficial open ulcers. 1+ edema to below the knees.) Neurologic/Psychiatric: positive: Oriented x3 (Grossly normal motor exam) - LABS Result Diagrams: 05/14/22 04:33 05/14/22 04:33 - DIAGNOSTIC IMAGING Diagnostic Imaging Results: Final report reviewed - FOLLOW UP Follow Up: See PCP in 1-2 weeks for a hospital follow-up. - TIME SPENT Time Spent in Discharge (Minutes): 45
[2022-05-14 10:59] VITALS: BP 125/64
== END 2022-05-14 13:09 | disposition home or self-care (01) | DRG 291 ==
LOC: ED 10:31 → MS2 13:19 → OBSVTOIN 05-11 15:23
PROVIDERS: ADMIT Internal Medicine; ATTEND Internal Medicine
DX: I13.0 Hypertensive heart and chronic kidney disease with heart failure and stage 1 through stage 4 chronic kidney disease, or unspecified chronic kidney disease (principal); I50.9 Heart failure, unspecified; R00.0 Tachycardia, unspecified; Z20.822 Contact with and (suspected) exposure to COVID-19; I50.31 Acute diastolic (congestive) heart failure; E43 Unspecified severe protein-calorie malnutrition; L97.219 Non-pressure chronic ulcer of right calf with unspecified severity; L97.229 Non-pressure chronic ulcer of left calf with unspecified severity; N17.9 Acute kidney failure, unspecified; Z68.1 Body mass index [BMI] 19.9 or less, adult; L97.212 Non-pressure chronic ulcer of right calf with fat layer exposed; L97.222 Non-pressure chronic ulcer of left calf with fat layer exposed; I48.91 Unspecified atrial fibrillation; R09.02 Hypoxemia; N18.9 Chronic kidney disease, unspecified; E05.90 Thyrotoxicosis, unspecified without thyrotoxic crisis or storm; I83.012 Varicose veins of right lower extremity with ulcer of calf; I83.022 Varicose veins of left lower extremity with ulcer of calf; Z87.891 Personal history of nicotine dependence; M62.50 Muscle wasting and atrophy, not elsewhere classified, unspecified site
CPT/HCPCS: 36415; 71045; 80048; 80053; 80061; 81003; 83036; 83690; 83735; 83880; 84439; 84443; 84481; 84484; 85025; 87633; 93005; 93306; 96374; 96375; 96376; 97162; 97165; 97530; 99284; 99285; A9270; G0378; 81001; 83721; 87086

== ENCOUNTER 2023-04-16 12:26 | Outpatient (CLI) | payer MEDICARE ==
--- NOTE | 2023-04-16 13:36 | XRAY Report ---
PROCEDURE: Abdomen Acute INDICATIONS: ABDOMINAL BLOATING/CONSTIPATION TECHNIQUE: One view of the chest and 2 views of the abdomen were acquired. COMPARISON: Chest x-ray 05/10/2022 FINDINGS: Surgical changes and devices: None. Chest: Dense right base opacity with meniscus sign. No left pleural effusion. No pneumothorax. The up per right lung and left lung appear clear. Heart and mediastinal contour are normal. No pneumoperiton eum. Bowel: No pneumoperitoneum. No suspicious dilated air-filled bowel loops. No air-fluid levels. The bowel gas pattern is normal. Stool load within normal limits. Soft tissues: No masses; visualized solid organ contours appear normal in size. No suspicious abdom inal calcifications. Bones: No suspicious bony abnormalities. Degenerative endplate changes in the spine. Moderate arthr itic changes in both hips, right greater than left. IMPRESSION: Dense right lung base opacity and effusion, chronic. Normal bowel gas pattern. Reviewed by: Earlene Suárez MD on 04/16/2023 1:35 PM PDT Approved by: Earlene Suárez MD on 04/16/2023 1:35 PM PDT Station ID: [id number]
[2023-04-16 14:21] LABS: BASOPHILS % (AUTO) 0.4 %; EOSINOPHILS % (AUTO) 0.4 %; HCT - HEMATOCRIT 50.4 % (42.0-52.0); HGB - HEMOGLOBIN 16.7 g/dL (14.0-18.0); LYMPHOCYTES # (AUTO) 1.8 10^3/uL (1.5-3.5); LYMPHOCYTES % (AUTO) 19.3 %; MEAN CORPUSCULAR HGB CONC 33.1 g/dL (32.0-36.0); MEAN CORPUSCULAR VOLUME 87.5 fL (80.0-94.0); MEAN PLATELET VOLUME 10.5 fL (7.4-11.4); MONOCYTES # (AUTO) 0.9 10^3/uL (0.0-1.0); MONOCYTES % (AUTO) 9.4 %; NEUTROPHILS # (AUTO) 6.7 10^3/uL (1.5-6.6); NEUTROPHILS % (AUTO) 70.1 %; PLT - PLATELET COUNT 268 10^3/uL (130-450); RED BLOOD COUNT 5.76 10^6/uL (4.70-6.10); RED CELL DISTRIBUTION WIDTH 13.9 % (12.0-15.0); WHITE BLOOD COUNT 9.5 x10^3/uL (4.8-10.8)
[2023-04-16 14:51] LABS: T4 (THYROXINE) 15.21 ug/dL (6.09-12.23)
[2023-04-16 14:55] LABS: THYROID STIMULATING HORMONE < 0.08 uIU/mL (0.34-5.60)
[2023-04-16 15:09] LABS: ALBUMIN 3.1 g/dL (3.2-5.5); ALBUMIN/GLOBULIN RATIO 0.6 (1.0-2.2); CALCIUM 8.6 mg/dL (8.5-10.3); POTASSIUM 3.5 mmol/L (3.5-5.0); TOTAL PROTEIN 8.5 g/dL (6.7-8.2)
== END 2023-04-16 12:27 | disposition home or self-care (01) ==
LOC: DI.S 12:26
PROVIDERS: ATTEND Physician Assistant Medical
DX: R91.8 Other nonspecific abnormal finding of lung field (principal); J90 Pleural effusion, not elsewhere classified; R14.0 Abdominal distension (gaseous); K59.00 Constipation, unspecified; I50.9 Heart failure, unspecified; E05.90 Thyrotoxicosis, unspecified without thyrotoxic crisis or storm
CPT/HCPCS: 36415; 80053; 83880; 84436; 84443; 84480; 85025

== ENCOUNTER 2023-06-22 07:14 | Outpatient (CLI) | payer MEDICARE ==
[2023-06-22 15:50] LABS: THYROID STIMULATING HORMONE 0.07 uIU/mL (0.34-5.60)
== END 2023-06-22 07:15 | disposition home or self-care (01) ==
LOC: LAB.S 07:14
PROVIDERS: ATTEND Registered Nurse
DX: E05.90 Thyrotoxicosis, unspecified without thyrotoxic crisis or storm (principal)
CPT/HCPCS: 36415; 84436; 84443; 84480

== ENCOUNTER 2024-06-21 10:07 | Outpatient (CLI) | payer MEDICARE | END 2024-06-21 23:59 | disposition E | LOC: EMS 10:07 ==